=== PATIENT | male | born 1960 | race Caucasian/White ===

== ENCOUNTER 2024-06-04 08:30 | Day surgery (SDC) | payer OTHER ==
[2024-06-04 08:29] VITALS: BMI 28.6
[2024-06-04 10:00] LABS: BASO % 0.6 % (0-2.0); EOS % 0.2 % (0-4.5); HEMATOCRIT 44.5 % (35.4-49); HEMOGLOBIN 15.5 GM/dL (11.7-16.9); LYMPH % 17.2 % (8-40); MCH 30.2 pg (25.7-33.7); MCHC 34.7 g/dl (32.0-35.9); MEAN PLT VOLUME 7.8 fl (7.5-11.1); MONO % 7.3 % (3.8-10.2); NEUT % 74.7 % (42.8-82.8); PLATELET COUNT 205 10^3/uL (134-434); RBC 5.12 M/mm3 (4.00-5.60); RDW 12.8 % (11.9-15.9); WHITE BLOOD COUNT 5.7 K/mm3 (4.0-10.0)
[2024-06-04 10:07] LABS: INR 1.04 (0.83-1.09); PROTHROMBIN TIME (PATIENT) 11.9 SEC (9.7-13.0)
[2024-06-04 10:25] LABS: POTASSIUM 3.9 mmol/L (3.5-5.1)
[2024-06-04 10:29] LABS: ALBUMIN 3.9 g/dl (3.4-5.0); CALCIUM 9.2 mg/dL (8.5-10.1)
[2024-06-04 10:33] LABS: CREATININE 1.1 mg/dL (0.55-1.3)
[2024-06-04 10:34] LABS: BILIRUBIN,TOTAL 0.7 mg/dL (0.2-1); TOT PROT 6.9 g/dl (6.4-8.2)
[2024-06-04] MEDS ORDERED: MIDAZOLAM HCL 2 MG/2 ML SINGLE DOSE VIAL ONE (10:47)
[2024-06-04] MEDS ORDERED: FENTANYL CITRATE/PF 50 MCG/ML VIAL ONE (10:47)
[2024-06-04] MEDS: FENTANYL CITRATE/PF 50 MCG/ML VIAL IVPUSH SCH (11:23)
[2024-06-04] MEDS: MIDAZOLAM HCL 2 MG/2 ML SINGLE DOSE VIAL IVPUSH SCH (11:23)
[2024-06-04 13:14] VITALS: RESP 18
[2024-06-04 13:45] VITALS: BP 130/70; PULSE 72; TEMP 97.4
== END 2024-06-04 14:30 | disposition home or self-care (01) ==
LOC: JRADIR 08:30
PROVIDERS: ATTEND Internal Medicine Gastroenterology
PROC: 0FD03ZX Extraction of Liver, Percutaneous Approach, Diagnostic (ICD-10-PCS; principal; 2024-06-04)
DX: K75.4 Autoimmune hepatitis (principal)
CPT/HCPCS: 36415; 47000; 76942-TC; 80053; 85025; 85610; 87899; 88307-TC; 88313-TC